=== PATIENT | male | born 1995 | race Caucasian/White ===

== ENCOUNTER 2023-05-10 13:56 | Emergency (ER) | payer MEDICAID ==
[~2023-05-10] VITALS: Ht 162.6 cm; Wt 50.0 kg
[2023-05-10 14:02] VITALS: O2SAT 100
[2023-05-10] MEDS ORDERED: DILANTIN (14:02)
[2023-05-10] MEDS ORDERED: KEPPRA (14:02)
[2023-05-10] MEDS: LEVETIRACETAM 500MG PREMIX 100 ML IV ONE (15:04)
[2023-05-10] MEDS: SODIUM CHLORIDE 0.9% 1,000 ML IV ONE (15:05)
[2023-05-10 15:27] LABS: BASOPHILS % 0.5 % (0.0-2.0); EOSINOPHILS % 0.8 % (0.0-5.0); HEMOGLOBIN. 13.6 g/dL (14.0-18.0); LYMPHOCYTES % 18.5 % (20.0-50.0); MEAN CORPUSCULAR HEMOGLOBIN 30.8 pg (28.0-32.0); MEAN CORPUSCULAR HGB CONC 33.2 g/dL (31.0-37.0); MEAN CORPUSCULAR VOLUME 92.8 fL (80.0-94.0); MEAN PLATELET VOLUME 8.1 fl (7.4-10.4); NEUTROPHILS % 72.2 % (40.0-76.0); PLATELET 240 x1000/uL (130-400); RED BLOOD CELL COUNT 4.42 mill/uL (4.7-6.1); RED CELL DISTRIBUTION WIDTH 15.4 % (11.6-14.6)
[2023-05-10 16:01] LABS: ALANINE AMINOTRANSFERASE 23 IU/L (10-49); ALBUMIN 4.5 g/dL (3.2-4.8); ASPARTATE AMINOTRANSFERASE 20 IU/L (<34); BILIRUBIN TOTAL 0.3 mg/dL (0.1-1.0); CALCIUM 9.1 mg/dL (8.7-10.4); CARBON DIOXIDE 28 mEq/L (21-32); CHLORIDE 106 mEq/L (98-107); CREATININE 0.7 mg/dL (0.6-1.3); GLUCOSE 81 mg/dL (70-105); POTASSIUM 4.1 mEq/L (3.5-5.1); PROTEIN TOTAL 8.1 g/dL (6.0-8.3); SODIUM 139 mEq/L (136-145); UREA NITROGEN BLOOD 9 mg/dL (9-23)
[2023-05-10 16:11] LABS: PHENYTOIN < 2.0 ug/mL (10-20)
[2023-05-10] MEDS: VALPROIC ACID 250MG CAPSULE PO ONE (17:15)
[2023-05-10] MEDS: PHENYTOIN SODIUM 1,000 MG in SODIUM CHLORIDE 0.9% 100 ML IV ONE (17:46)
[2023-05-10 19:34] VITALS: TEMP 97.5
[2023-05-10 21:25] VITALS: BP 118/70; PULSE 88; RESP 16
== END 2023-05-10 21:28 | disposition home or self-care (01) ==
LOC: ER 13:56
DX: G40.909 Epilepsy, unspecified, not intractable, without status epilepticus (principal); F84.0 Autistic disorder
CPT/HCPCS: 80053; 80185; 80165; 85025; 36415; 93005; 96367; 96365; 99285; J1953; J1165; J7050; J7030; Z7610 ×2

== ENCOUNTER 2024-01-21 13:00 | Emergency (ER) | payer MEDICAID ==
[~2024-01-21] VITALS: Ht 165.1 cm; Wt 63.0 kg
[~2024-01-21 13:00] MED LIST: DILANTIN; KEPPRA
[2024-01-21 13:01] VITALS: BP 127/60; PULSE 120; RESP 18; TEMP 98.1; O2SAT 97
== END 2024-01-21 13:24 | disposition left against medical advice (07) ==
LOC: ER 13:00
DX: G40.909 Epilepsy, unspecified, not intractable, without status epilepticus (principal); R62.50 Unspecified lack of expected normal physiological development in childhood
CPT/HCPCS: 99283